=== PATIENT | female | born 1980 | race Caucasian/White ===

== ENCOUNTER 2019-11-18 05:48 | Day surgery (SDC) | payer BC ==
[~2019-11-18] VITALS: Ht 162.6 cm; Wt 111.0 kg
[2019-11-18 06:23] VITALS: BP 110/75
[2019-11-18] MEDS ORDERED: BUPIVACAINE/PF-EPI 0.5% 1:200K ONE (06:30)
[2019-11-18] MEDS ORDERED: OMEP40CA42 PO (06:32)
[2019-11-18] MEDS ORDERED: AMIT10TA PO (06:32)
[2019-11-18] MEDS ORDERED: ESCI10TA10 PO (06:32)
[2019-11-18] MEDS ORDERED: HYDR-3240 PO (06:32)
[2019-11-18] MEDS ORDERED: LACTATED RINGERS 1,000 ML IV SCH (06:33)
[2019-11-18 06:44] LABS: HCG UR SG 1.024 (1.003-1.030)
[2019-11-18] MEDS ORDERED: LIDOCAINE-MPF 1%, 2ML ONE (06:51)
[2019-11-18] MEDS ORDERED: MIDAZOLAM 1 MG/ML, 2ML ONE (06:51)
[2019-11-18] MEDS ORDERED: FENTANYL PF 250 MCG/5ML ONE ×2 (06:51→08:15)
[2019-11-18] MEDS ORDERED: MEPERIDINE/PF 25MG/0.5ML IVPush PRN (07:00)
[2019-11-18] MEDS ORDERED: HYDROmorphone 1 MG/ML, 1ML INJ IVPush PRN (07:00)
[2019-11-18] MEDS ORDERED: LABETALOL 5MG/ML, 20ML IV PRN (07:00)
[2019-11-18] MEDS ORDERED: hydrALAzine 20 MG/ML, 1ML IV PRN (07:00)
[2019-11-18] MEDS ORDERED: HALOPERIDOL 5 MG/ML IV PRN (07:00)
[2019-11-18] MEDS ORDERED: OXYcodone 5 MG/5 ML ORAL.SOL UDC PO PRN (07:00)
[2019-11-18] MEDS ORDERED: PROMETHAZINE 25 MG/ML, 1ML IVPush PRN (07:00)
[2019-11-18] MEDS ORDERED: CHLORHEXIDINE 15 ML UDC MM ONE (07:00)
[2019-11-18] MEDS ORDERED: CEFAZOLIN 1,000 MG ONE ×2 (07:43→09:24)
[2019-11-18] MEDS ORDERED: PROPOFOL 10 MG/ML, 20ML ONE ×2 (07:43→09:24)
[2019-11-18] MEDS ORDERED: DEXAMETHASONE 4 MG/ML, 1ML ONE ×2 (07:43→09:24)
[2019-11-18] MEDS ORDERED: SUCCINYLCHOLINE 20 MG/ML, 10ML ONE ×2 (07:43→09:24)
[2019-11-18] MEDS ORDERED: ONDANSETRON 2MG/ML, 2ML ONE ×2 (07:43→09:24)
[2019-11-18] MEDS ORDERED: GLYCOPYRROLATE 0.2MG/1ML, 5ML ONE ×2 (07:43→09:24)
[2019-11-18] MEDS ORDERED: NEOSTIGMINE 1 MG/ML, 10ML ONE ×2 (07:43→09:24)
[2019-11-18] MEDS ORDERED: ROCURONIUM 10MG/ML,5ML ONE ×2 (07:43→09:24)
[2019-11-18] MEDS ORDERED: KETOROLAC 30 MG/1 ML ONE (07:47)
[2019-11-18] MEDS ORDERED: SUGAMMADEX 200 MG/2 ML IVPush ONE ×2 (07:47→09:25)
[2019-11-18] MEDS ORDERED: FENTANYL PF 100 MCG/2ML ONE (08:18)
[2019-11-18] MEDS ORDERED: OXYcodone 5 MG/5 ML ORAL.SOL UDC ONE (08:19)
[2019-11-18] MEDS ORDERED: ACETAMINOPHEN 325 MG TABLET ONE (08:19)
[2019-11-18] MEDS: FENTANYL PF 100 MCG/2ML IV PRN ×2 (08:24→08:34)
[2019-11-18] MEDS ORDERED: ACETAMINOPHEN 650 MG/20.3 ML UDC PO ONE (08:30)
== END 2019-11-18 09:45 | disposition home or self-care (01) ==
LOC: OUT 05:48
PROVIDERS: ATTEND Surgery
DX: K80.10 Calculus of gallbladder with chronic cholecystitis without obstruction (principal); K21.9 Gastro-esophageal reflux disease without esophagitis; F41.9 Anxiety disorder, unspecified; F32.9 Major depressive disorder, single episode, unspecified; G43.909 Migraine, unspecified, not intractable, without status migrainosus; E55.9 Vitamin D deficiency, unspecified; E66.01 Morbid (severe) obesity due to excess calories; F17.210 Nicotine dependence, cigarettes, uncomplicated; Z68.41 Body mass index [BMI] 40.0-44.9, adult; Z79.891 Long term (current) use of opiate analgesic; Z79.899 Other long term (current) drug therapy; Z88.8 Allergy status to other drugs, medicaments and biological substances; Z91.048 Other nonmedicinal substance allergy status; Z98.890 Other specified postprocedural states; Z82.49 Family history of ischemic heart disease and other diseases of the circulatory system; Z83.79 Family history of other diseases of the digestive system; Z83.42 Family history of familial hypercholesterolemia
CPT/HCPCS: 47562; 81025; 88304; C1760; J0330; J0690; J1100; J1885; J2250; J2405; J2704; J3010; J7120; U0001; J2710